=== PATIENT | female | born 1995 | race Caucasian/White ===

== ENCOUNTER 2019-11-27 06:35 | Emergency (ER) | payer SELFPAY ==
[~2019-11-27] VITALS: Ht 172.7 cm; Wt 110.0 kg
[~2019-11-27 06:35] MED LIST: VENL-190 PO
[2019-11-27 07:08] LABS: BASOPHILS # (AUTO) 0.1 X10'3 (0-0.2); BASOPHILS % (AUTO) 0.6 % (0-1); EOSINOPHILS % (AUTO) 0.3 % (0-6); HEMATOCRIT 39.2 % (35.0-45.0); LYMPHOCYTES # (AUTO) 2.5 X10'3 (1.1-4.8); LYMPHOCYTES % (AUTO) 27.1 % (21-51); MEAN CORPUSCULAR HEMOGLOBIN 26.9 PG (27.0-31.0); MEAN CORPUSCULAR HGB CONC 33.2 g/dL (33.0-36.5); MEAN PLATELET VOLUME 8.3 FL (7.4-10.4); MONOCYTES # (AUTO) 0.5 X10'3 (0-0.9); NEUTROPHILS # (AUTO) 6.3 X10'3 (1.8-7.7); PLATELET COUNT 265 X10'3 (140-440); RED BLOOD COUNT 4.84 X10'6 (4.20-5.60); RED CELL DISTRIBUTION WIDTH 13.5 % (11.5-14.5); WHITE BLOOD COUNT 9.4 X10'3 (4.5-11.0)
[2019-11-27 07:29] LABS: ALANINE AMINOTRANSFERASE 24 U/L (12-78); ALBUMIN 3.8 G/DL (3.4-5.0); ALKALINE PHOSPHATASE 51 IU/L (46-116); ANION GAP 11 (8-16); ASPARTATE AMINO TRANSFERASE 12 U/L (10-37); BILIRUBIN,TOTAL 0.2 MG/DL (0.1-1.0); BLOOD UREA NITROGEN 5 MG/DL (7-18); BUN/CREATININE RATIO 6.4 (6.6-38.0); CALCIUM 9.1 MG/DL (8.5-10.1); CHLORIDE 106 MMOL/L (99-107); CREATININE 0.78 MG/DL (0.40-0.90); GLUCOSE 117 MG/DL (70-104); POTASSIUM 3.8 MMOL/L (3.5-5.1); SODIUM 138 MMOL/L (135-145); TOTAL CARBON DIOXIDE 20.7 MMOL/L (24-32); TOTAL PROTEIN 7.8 G/DL (6.4-8.2); eGFR > 90 ML/MIN
[2019-11-27 07:44] LABS: URINE HCG NEGATIVE (NEG)
[2019-11-27 07:50] LABS: D-DIMER 0.26 MG/L FEU (0-0.50)
[2019-11-27 08:20] VITALS: BP 123/79
== END 2019-11-27 08:22 | disposition home or self-care (01) ==
LOC: ER 06:35
DX: F41.9 Anxiety disorder, unspecified (principal); R07.89 Other chest pain; R00.0 Tachycardia, unspecified; F32.9 Major depressive disorder, single episode, unspecified; F12.90 Cannabis use, unspecified, uncomplicated; Z56.0 Unemployment, unspecified; Z79.899 Other long term (current) drug therapy
CPT/HCPCS: 36415; 71045; 80053; 81025; 84484; 85025; 85379; 93005; 99285

== ENCOUNTER 2021-01-02 17:44 | Emergency (ER) | payer BC ==
[~2021-01-02] VITALS: Ht 170.2 cm; Wt 105.0 kg
[2021-01-02 20:37] VITALS: BP 155/92
== END 2021-01-02 20:39 | disposition home or self-care (01) ==
LOC: ER 17:44
DX: R22.42 Localized swelling, mass and lump, left lower limb (principal); M79.662 Pain in left lower leg; M25.572 Pain in left ankle and joints of left foot; F12.90 Cannabis use, unspecified, uncomplicated; Z79.899 Other long term (current) drug therapy; Z56.0 Unemployment, unspecified
CPT/HCPCS: 93971; 99284

== ENCOUNTER 2021-01-06 18:29 | Emergency (ER) | payer BC ==
[~2021-01-06] VITALS: Ht 170.2 cm; Wt 100.0 kg
[2021-01-06 20:14] VITALS: BP 158/86
== END 2021-01-06 22:31 | disposition home or self-care (01) ==
LOC: ER 18:29
DX: S93.491A Sprain of other ligament of right ankle, initial encounter (principal); S90.511A Abrasion, right ankle, initial encounter; M25.571 Pain in right ankle and joints of right foot; F41.9 Anxiety disorder, unspecified; F32.9 Major depressive disorder, single episode, unspecified; F12.90 Cannabis use, unspecified, uncomplicated; Z56.0 Unemployment, unspecified; Z79.899 Other long term (current) drug therapy; W01.0XXA Fall on same level from slipping, tripping and stumbling without subsequent striking against object, initial encounter; Y93.89 Activity, other specified; Y92.89 Other specified places as the place of occurrence of the external cause; Y99.8 Other external cause status
CPT/HCPCS: 29515; 73610; 99284

== ENCOUNTER 2022-05-12 16:03 | Emergency (ER) | payer BC ==
[~2022-05-12] VITALS: Ht 170.2 cm; Wt 115.0 kg
[2022-05-12 16:15] VITALS: BP 137/95
== END 2022-05-12 19:06 | disposition home or self-care (01) ==
LOC: ER 16:04
DX: M79.644 Pain in right finger(s) (principal); M25.531 Pain in right wrist; M67.431 Ganglion, right wrist; F12.90 Cannabis use, unspecified, uncomplicated; Z56.0 Unemployment, unspecified; Z79.899 Other long term (current) drug therapy
CPT/HCPCS: 29125; 73100; 99283